=== PATIENT | male | born 1935 | race Caucasian/White ===

== ENCOUNTER 2017-02-16 12:20 | Inpatient (IN) | payer MEDICARE, OTHER ==
[2017-02-16] MEDS ORDERED: Diabetic Tussin 200 MG/10 ML UDCUP PO PRN (12:22)
[2017-02-16] MEDS ORDERED: Senokot 8.6 MG TAB PO PRN (12:22)
[2017-02-16] MEDS ORDERED: Artificial Tears 18 DROP/0.9 ML EA EYE PRN (12:22)
[2017-02-16] MEDS ORDERED: Milk Of Magnesia 30 ML UDCUP PO PRN (12:22)
[2017-02-16] MEDS ORDERED: Ondansetron HCl/PF 4 MG/2 ML Vial IVP PRN (12:22)
[2017-02-16] MEDS ORDERED: Loperamide HCl 2 MG CAP PO PRN (12:22)
[2017-02-16] MEDS ORDERED: hydrALAZINE 20 MG/ML VIAL SLOW IVP PRN (12:22)
[2017-02-16] MEDS ORDERED: Labetalol HCl 100 MG/20 ML VIAL SLOW IVP PRN (12:22)
[2017-02-16] MEDS ORDERED: Acetaminophen 325 MG TAB PO PRN (12:22)
[2017-02-16] MEDS ORDERED: Ondansetron ODT 4 MG TAB PO PRN (12:22)
[2017-02-16] MEDS ORDERED: Sodium Chloride 0.65% Nasal 44 ML BOT EA NARE PRN (12:22)
[2017-02-16] MEDS ORDERED: Mag-Al 1200 mg/1200 mg/30 ML UDCUP PO PRN (12:22)
[2017-02-16] MEDS ORDERED: Eucerin (Mineral Oil/Petrolatum,White) 30 gm Jar TOP PRN (12:22)
[2017-02-16] MEDS ORDERED: HYDROcodone/Acetaminophen 5/325 mg Tablet PO PRN (12:22)
[2017-02-16] MEDS ORDERED: Morphine 4 MG/ML Carpuject SLOW IVP PRN (12:25)
[2017-02-16] MEDS ORDERED: Sodium Chloride 0.9% 1,000 ML IV SCH (12:30)
[2017-02-16 13:07] VITALS: BMI 28.4
[2017-02-16 13:27] LABS: #Eosinphils 0.1 thou/uL (0.0-0.7); #Lymphocytes 1.7 thou/uL (1.20-3.40); #Monocytes 1.1 thou/uL (0.11-0.59); %Basophils 0.2 % (0.0-1.0); %Lymphocytes 18.9 % (21.0-51.0); %Monocytes 11.8 % (0.0-10.0); Hematocrit 46.2 % (42.0-52.0); Mean Platelet Volume 9.4 fL (7.4-10.4); Red Blood Cell (RBC) Count 4.36 mill/uL (4.70-6.10); White Blood Cell (WBC) Count 8.9 thou/uL (4.8-10.8)
--- NOTE | 2017-02-16 13:35 | CON ---
DATE OF CONSULTATION: 02/16/2017 REASON FOR CONSULTATION: Pancreatitis. HISTORY OF PRESENT ILLNESS: Mr. Donahue is a 81-year-old gentleman who came to the office yesterday f or multiple complaints. He reported that he had been having some epigastric pain and chest pain wit h esophageal spasm for about 3 weeks now. He had been out of state in [place] where he went to an Urgent Care Clinic and was told he had alcoholic hepatitis and alcoholic gastritis. He was placed on a PPI and told to avoid alcohol. At that time his ALT and AST were 168 and 38 with an alkaline p hosphatase of 163, albumin of 4.5 and a bilirubin of 0.6. Apparently he had some liver enzyme eleva tion higher than that prior to that visit, but we do not have those records. He describes the epiga stric pain as vague. He states his chest pain is spasm-like, it recurred when he was eating. He th inks it was occurring because he had been stopped from taking his PPIs and he had recently seen a ne phrologist as well in the past several months for some renal insufficiency, it was felt to be relate d to NSAID use and PPIs. He was on NSAIDs secondary to psoriatic arthritis that has been treated by Dr. Castro more recently. He has only been on prednisone 5 mg a day for that. He has been takin g ranitidine for his reflux. He reported having some throat pain and spasm, difficulty swallowing a t times, but was not vomiting or having any symptoms of bolus obstruction. Presently he has come in today for upper endoscopy to rule out ulcer disease or strictures which was essentially normal exce pt for a 5 cm sliding type hiatal hernia. We were able to retrieve the labs done late yesterday aft [place] before he left and it was found that he had an AST and ALT of 594 and 678 with an alkaline ph osphatase of 412 and a bilirubin of 7.5, amylase 2089, and a lipase of 5404, BUN and creatinine were 24 and 1.7. Electrolytes were normal. TSH was normal. Folic acid, vitamin B12 are normal. White count was 12.6, hemoglobin 16, MCV 106, platelet count 180. PAST MEDICAL AND SURGICAL HISTORY: 1. Psoriatic arthritis. 2. Regular alcohol use. 3. Asthma/COPD. 4. History of skin cancer. 5. Hypertension. 6. Prior history of a cholecystectomy. 7. Eye surgery. 8. He reports a history of ulcerative colitis, although it never been documented here. 9. Previous colonoscopy in 2016 was normal except for a diminutive polyp in the sigmoid colon. 10. Ankle surgery. 11. Orthopedic surgery, rotator cuff surgery. 12. Abdominal surgery. 13. Appendectomy. 14. Tonsillectomy. FAMILY HISTORY: CVA, coronary artery disease, uterine cancer in mother. SOCIAL HISTORY: , 6 children. He chews tobacco, drinks daily, vague on amounts, 3-5 drinks per day. REVIEW OF SYSTEMS: Negative for fever, chills, icterus, pruritus, weight loss. PHYSICAL EXAMINATION: VITAL SIGNS: The patient is afebrile, blood pressure 150/83, respirations 18. GENERAL: He is a well-nourished, well-developed. He has no overt acute distress. LUNGS: Clear. HEART: Regular rate and rhythm without clicks or murmurs. ABDOMEN: Soft, nontender with no rebound or guarding. EXTREMITIES: No clubbing, cyanosis or edema. LABORATORY STUDIES: From yesterday; sodium 139, potassium 3.9, bicarb of 103, BUN 24, creatinine 1. 71, glucose 122, calcium 10.8, bilirubin 3.1, AST and ALT 594 and 678, alkaline phosphatase 412, lip ase 5404. Amylase 2098, TSH 2.6. White count 12.6, hemoglobin 16, MCV 108, platelet count 180. ASSESSMENT: This is a gentleman who was seen at an outside hospital out of state about 3 weeks ago with abdominal pain, abnormal liver enzymes. It is unclear what those numbers were; however, he rep orts he was told he had alcoholic hepatitis and possible gastritis or ulcer disease. He did get a f ollowup note from them stating his liver enzymes have improved, but not gone back to normal on 01/30 with an ALT and AST of 168 and 38. Bilirubin was 0.6. Now he has returned to see us. He has had an EGD today for dysphagia and abdominal pain that were essentially normal; however, his labs c leonel [facility] and it shows his amylase and lipase a re elevated, elevated liver enzymes. In the setting of previous cholecystectomy and history of now fluctuating LFTs, this is probably more likely biliary pancreatitis than alcoholic pancreatitis. Of note, his ALT and AST at the outside hospital 2 weeks ago was 168 and 38, ratio not expected with a lcohol. He shows no signs of cholangitis or sepsis, actually has very minimal pain. Multiple other medical problems to include asthma/chronic obstructive pulmonary disease, psoriatic arthritis/chronic steroid use. PLAN: Admit to the hospital, IV fluids. Abdominal imaging with CT or ultrasound, repeat labs today . The patient may ultimately need an ERCP during this admission.
[2017-02-16 13:47] LABS: Phosphorus 3.4 mg/dL (2.3-4.7)
[2017-02-16 13:50] LABS: ALT (SGPT) 429 U/L (8-55); AST (SGOT) 210 U/L (5-34); Alkaline Phosphatase 311 U/L (40-150); Anion Gap 16 mmol/L (10-20); BUN (Urea Nitrogen) 27 mg/dL (8.4-25.7); Bilirubin, Total 2.6 mg/dL (0.2-1.2); Calc. Creatinine Clearance 45 mL/min (70-130); Calcium 9.6 mg/dL (7.8-10.44); Carbon Dioxide 21 mmol/L (23-31); Chloride 105 mmol/L (98-107); Estimated GFR-MDRD 40; Globulin 3.7 g/dL (2.4-3.5); Lipase 978 U/L (8-78); Magnesium 2.2 mg/dL (1.6-2.6); Protein, Total 7.3 g/dL (5.8-8.1)
[2017-02-16] MEDS ORDERED: Multivit, Adult Inj 10 ML VIAL IV SCH (14:15)
--- NOTE | 2017-02-16 14:35 | HP ---
PRIMARY CARE PHYSICIAN: Héctor Christensen M.D. REASON FOR ADMISSION: Direct admission from Dr. Palencia' office for acute pancreatitis. HISTORY OF PRESENT ILLNESS: A 81-year-old male who visited Dr. Palencia' office yesterday with multiple complaints. Mainly, he was worried about his epigastric abdominal pain and he was having chest pain which was on and off for about 3 weeks. The patient was thinking that it was related with his esophageal spasm and that is why he was ignoring to go to the emergency room. His pain was gradually getting worse and that is why yesterday he made appointment with Dr. Palencia. Patient also recently went [place] where he went to Urgent Care Clinic and he was told that he had alcoholic hepatitis and alcoholic gastritis. He was placed on proton pump inhibitor and advised to avoid alcohol. For the last 3 weeks, patient was not drinking any alcohol and still he was having abdominal pain. He denies any fever, but he was feeling nausea. He denies any diarrhea. He denies any hematemesis. He denies any pain, melena or hematochezia. Patient's epigastric pain was getting worse with food. 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 His renal insufficiency was attributed to be due to NSAID, which he was using for his psoriatic arthritis. His psoriatic arthritis is managed by Dr. Castro. Last night after returning from Dr. Palencia' office, he was doing okay, but during nighttime, he had episode of fall and he got bruise on his left foot as well as left and right knee. He denies any chest pain, palpitation or shortness of breath. The patient had routine lab test done yesterday and patient was found that his AST 18 and ALT was significantly elevated as well as alkaline phosphatase was elevated and bilirubin was also high. His lipase and amylase was also very high. As per Dr. Palencia, his AST was 594 and ALT 678 and his alkaline phosphatase was 412 and bilirubin was 7.5. His amylase was 2089 and lipase 5404. His creatinine was 1.7. Electrolytes were normal. TSH was normal. Folic acid and B12 was normal and WBC count was 12.6 and platelet count was 180. This morning, he was told to come back to the clinic. Patient had EGD today for dysphagia, which was normal. The patient also reports that he had cholecystectomy done in past. At this point, we are admitting this patient for acute pancreatitis. PAST MEDICAL HISTORY: Psoriatic arthritis, alcohol abuse, asthma/COPD, history of skin cancer, hypertension, and history of ulcerative colitis. PAST SURGICAL HISTORY: Cholecystectomy, excision of skin cancer, colonoscopy showed polyp, eye surgery, ankle surgery, rotator cuff repair, abdominal surgery , appendicectomy, and tonsillectomy. FAMILY HISTORY: Positive for heart disease, stroke, and cancer among several family members, especially mother. ALLERGY: Penicillin CURRENT HOME MEDICATION: Synthroid 50 mc po daily, losartan/HCTZ 100/12.5 mg po daily, crestor 10 mg po daily. Flomax 0.4 mg po daily, singulair 10 mg po daily SOCIAL HISTORY: Patient is . He has 6 children. He chews tobacco. He drinks alcohol, three beers daily basis, he did not drink any alcohol for last 2-3 weeks. He denies any other illicit drug abuse. REVIEW OF SYSTEMS: The following complete review of systems was negative, unless otherwise mentioned in the HPI or below: Constitutional: Weight loss or gain, ability to conduct usual activities. Skin: Rash, itching. Eyes: Double vision, pain. ENT/Mouth: Nose bleeding, neck stiffness, pain, tenderness. Cardiovascular: Palpitations, dyspnea on exertion, orthopnea. Respiratory: Shortness of breath, wheezing, cough, hemoptysis, fever or night sweats. Gastrointestinal: Poor appetite, abdominal pain, heartburn, nausea, vomiting, constipation, or diarrhea. Genitourinary: Urgency, frequency, dysuria, nocturia. Musculoskeletal: Pain, swelling. Neurologic/Psychiatric: Anxiety, depression. Allergy/Immunologic: Skin rash, bleeding tendency. Please see my HPI for pertinent positive and negative. All other review of systems reviewed and negative except as mentioned in the HPI. PAST PSYCHIATRIC HISTORY: Reviewed and negative. PHYSICAL EXAMINATION: VITAL SIGNS: Currently, temperature 97.7, pulse 73, respiratory rate 16, saturation 94%, blood pressure 132/79. Weight 192 pounds. GENERAL: Patient is currently alert, awake, no obvious acute distress. HEAD: Normocephalic, atraumatic. EYES: Pupils round, reactive to light. Extraocular muscles intact. ENT: Oropharynx within normal limits. Moist mucous membranes, no oral lesion, no pharyngeal erythema, no exudate. NECK: Supple. Range of motion is normal. No meningeal signs of irritation. LUNGS: Clear to auscultation without any rhonchi or rales. CARDIAC: S1 and S2 regular without any murmur. ABDOMEN: Obesity present. Patient has epigastric tenderness. No peritoneal sign, no guarding, no rigidity, no rebound. BACK: Examination unremarkable, no CVA tenderness. EXTREMITIES: Upper extremity passive movements of all joints are normal. Lower extremities: No edema. Good peripheral pulsation. SKIN: No skin rash. The patient does have bruits above both knees as well as bruise over left foot. NEUROLOGIC: Nonfocal examination. MUSCULOSKELETAL: Passive movements of all joints are normal. PSYCHIATRIC: Normal affect. SIGNIFICANT LABORATORY DATA: 1. CBC: WBC 8.9, hemoglobin 14.7, MCV 106, and platelets 157. 2. BMP: Sodium 138, potassium 4.2, chloride 105, carbon dioxide 21, anion gap 16, BUN 27, creatinine 1.65, glucose 89, calcium 9.6, phosphorus 3.4, magnesium 2.2. 3. LFT: AST 210, ALT 429, alkaline phosphatase 311, albumin 3.6, CRP 10.81, lipase 978. ASSESSMENT AND PLAN/IMPRESSION: 1. Acute pancreatitis. This patient has a history of alcoholism, but he drinks alcohol almost 3-4 drinks everyday basis. He has not drank anything for last 2-3 weeks. Despite that, his LFT has gotten abnormal and he has elevated lipase. This patient already had previous cholecystectomy, underlying choledocholithiasis is possible. At this point, we will continue hydration with IV fluid with NS at 200 mL per hour. We will control his pain with morphine p.r.n. basis. We will keep him n.p.o. We will repeat CMP tomorrow. Once we hydrated him well and his renal function improves, then we will consider doing CT abdomen if needed. We will consult music professionals as well. Meanwhile, we will continue with Pepcid 20 mg IV b.i.d. and symptomatic treatment for nausea. Incentive spirometry was advised. 2. Abnormal liver function tests. We will check hepatitis profile to rule out any hepatitis C, most likely his abnormal LFTs could be related with choledocholithiasis versus alcoholic liver disease. Other etiology needs to be excluded. 3. Chronic kidney disease stage 3. We will monitor renal function and we will continue with IV fluid and will repeat CMP tomorrow. We will also check urinalysis. 4. Macrocytosis, likely related with his alcohol use. We will also consider giving him multivitamin daily. 5. Chronic obstructive pulmonary disease/asthma. We will continue DuoNeb q.6 hourly p.r.n., Dulera 2 puffs inhalation b.i.d. 6. Hypothyroidism. We will continue Synthroid 50 mcg p.o. daily. 7. Dyslipidemia. We will check lipid profile tomorrow and continue Crestor 10 mg p.o. at bedtime. 8. Benign enlargement of prostate. We will continue Flomax 0.4 mg p.o. daily. 9. Hypertension. Currently, blood pressure is stable, but if blood pressure permits, then we will consider adding losartan 50 mg p.o. daily. We will hold on losartan 100 mg p.o. daily. We will hold on hydrochlorothiazide. 10. Deep venous thrombosis prophylaxis. Lovenox 40 mg subcutaneously daily. 11. Gastrointestinal prophylaxis. Pepcid 20 mg IV b.i.d. 12. Code status: The patient is FULL CODE. Patient does not have any surrogate decision maker. Disposition plan based on clinical course. Plan of care extensively discussed with the patient in detail. This patient may need ERCP based on clinical course and above-mentioned investigation result. MTDD
[2017-02-16] MEDS ORDERED: ADMIXTURE FEE IV SCH ×3 (15:00)
[2017-02-16] MEDS ORDERED: [UNRECOGNIZED DRUG - OTHER] IV SCH ×3 (15:00)
[2017-02-16] MEDS ORDERED: MULTIVITAMINS IV SCH ×3 (15:00)
[2017-02-16 15:03] LABS: Bilirubin Moderate (Negative); Blood, Urine Negative (Negative); Glucose, Urine (Dipstick) Negative (Negative); Ketone, Urine Trace mg/dL (Negative); Protein, Urine (Dipstick) 30 mg/dL (Neg-Trace)
[2017-02-16 15:05] LABS: Bacteria/HPF None Seen HPF (None Seen); Hyaline Casts/LPF 0-3 HYALINE CAST LPF (0-3 Hyaline); RBC/HPF 0-3 HPF (0-3)
[2017-02-16 15:10] LABS: Nitrite Negative (Negative)
[2017-02-16 15:15] LABS: Renal Epithelial 0-3 HPF (0-3); Transitional Epithelial 0-3 HPF (0-3)
[2017-02-16] MEDS: Dextrose 5 % And 0.9 % NaCl 1,000 ML IV SCH ×2 (15:20→21:11)
--- NOTE | 2017-02-16 17:04 | ULT ---
RIGHT UPPER QUADRANT ULTRASOUND: Date: 02/16/17 CLINICAL HISTORY: Pancreatitis. FINDINGS: Gallbladder is surgically absent. The liver reveals no evidence of focal hepatic lesion. Common duct is normal at 3.0 mm in diameter. Matthews's sign reported as negative by the return checker. No ascites. IMPRESSION: 1. Status post cholecystectomy. 2. No acute abnormalities in the right upper quadrant are evident, sonographically. POS: [facility]
[2017-02-16] MEDS: Mometasone/Formoterol 120 PUFF INHALER INH SCH (19:15)
[2017-02-16] MEDS: Famotidine/PF 20 mg/2ml Vial SLOW IVP SCH (21:11)
[2017-02-16] MEDS: Rosuvastatin 10 MG TAB PO SCH (21:11)
[2017-02-16] MEDS: Zolpidem Tartrate 5 MG TAB PO PRN (21:12)
[2017-02-16] MEDS: Loratadine 10 MG TAB PO PRN (21:12)
[2017-02-17] MEDS: Dextrose 5 % And 0.9 % NaCl 1,000 ML IV SCH ×5 (04:00→21:35)
[2017-02-17 04:42] LABS: #Eosinphils 0.1 thou/uL (0.0-0.7); #Lymphocytes 1.2 thou/uL (1.20-3.40); #Neutrophils 4.6 thou/uL (1.40-6.50); %Basophils 0.5 % (0.0-1.0); %Eosinophils 1.8 % (0.0-10.0); %Lymphocytes 16.8 % (21.0-51.0); %Monocytes 14.6 % (0.0-10.0); Hematocrit 39.7 % (42.0-52.0); Red Blood Cell (RBC) Count 3.71 mill/uL (4.70-6.10); White Blood Cell (WBC) Count 6.9 thou/uL (4.8-10.8)
[2017-02-17 04:58] LABS: ALT (SGPT) 295 U/L (8-55); AST (SGOT) 111 U/L (5-34); Alkaline Phosphatase 241 U/L (40-150); Anion Gap 11 mmol/L (10-20); BUN (Urea Nitrogen) 22 mg/dL (8.4-25.7); Bilirubin, Total 1.5 mg/dL (0.2-1.2); Calc. Creatinine Clearance 50 mL/min (70-130); Calcium 8.7 mg/dL (7.8-10.44); Carbon Dioxide 21 mmol/L (23-31); Chloride 111 mmol/L (98-107); Cholesterol 120 mg/dl (< 200 Desired); Estimated GFR-MDRD 46; Globulin 3.3 g/dL (2.4-3.5); LDL Cholesterol, Calculated 65 mg/dL; Lipase 531 U/L (8-78); Protein, Total 6.4 g/dL (5.8-8.1)
[2017-02-17] MEDS: Mometasone/Formoterol 120 PUFF INHALER INH SCH ×2 (07:56→19:07)
[2017-02-17] MEDS: Enoxaparin Sodium 40 MG/0.4 ML SYRINGE SC SCH (08:09)
[2017-02-17] MEDS: Famotidine/PF 20 mg/2ml Vial SLOW IVP SCH ×2 (08:09→21:28)
[2017-02-17] MEDS: Levothyroxine Sodium 50 MCG TAB PO SCH (08:09)
[2017-02-17] MEDS: Tamsulosin HCl 0.4 MG CAP PO SCH (08:09)
[2017-02-17] MEDS: Calcium Carbonate 600 MG TAB PO SCH (08:09)
[2017-02-17] MEDS: Montelukast Sodium 10 mg Tablet PO SCH (08:09)
[2017-02-17] MEDS: Multivit, Therapeutic 1 TAB PO SCH (08:09)
[2017-02-17] MEDS ORDERED: Non-Formulary Item 1 EACH (Multivitamin [Multivitamins] 1 CAP) PO SCH ×2 (09:00)
--- NOTE | 2017-02-17 12:43 | PDOC.PN ---
- Subjective Encounter Start Date: 02/17/17 Encounter Start Time: 09:15 -: old records requested/rev pt has mild abdominal pain, no fever Patient seen and examined. No new complaints. No overnight events - Objective Resuscitation Status: Resuscitation Status FULL:Full Resuscitation MAR Reviewed: Yes Vital Signs & Weight: Vital Signs (12 hours) Temp Pulse Resp BP Pulse Ox 02/17/17 12:00 97.9 F 55 L 18 158/85 H 94 L 02/17/17 08:02 95 02/17/17 08:00 97.1 F L 61 20 95 02/17/17 07:56 61 20 95 02/17/17 07:37 97.1 F L 60 20 151/88 H 94 L Weight Weight 192 lb 8 oz Result Diagrams: 02/17/17 03:24 02/17/17 03:24 Radiology Reviewed by me: Yes (abdominal mri) Phys Exam - Physical Examination Constitutional: NAD HEENT: PERRLA, moist MMs, sclera anicteric Neck: no JVD, supple Respiratory: no wheezing, no rales, no rhonchi Cardiovascular: RRR, no significant murmur, no rub Gastrointestinal: soft, no distention, positive bowel sounds epigastric tenderness Musculoskeletal: no edema, pulses present Neurological: non-focal, normal sensation, moves all 4 limbs Psychiatric: normal affect, A&O x 3 Skin: no rash, normal turgor Dx/Plan (1) Abnormal LFTs Code(s): R79.89 - OTHER SPECIFIED ABNORMAL FINDINGS OF BLOOD CHEMISTRY Status : Acute (2) Acute pancreatitis Code(s): K85.90 - ACUTE PANCREATITIS WITHOUT NECROSIS OR INFECTION, UNSP Status: Acute (3) UTI (urinary tract infection) Status: Acute (4) Alcohol abuse Code(s): F10.10 - ALCOHOL ABUSE, UNCOMPLICATED Status: Chronic (5) BPH (benign prostatic hyperplasia) Code(s): N40.0 - BENIGN PROSTATIC HYPERPLASIA WITHOUT LOWER URINRY TRACT SYMP Status: Chronic (6) COPD (chronic obstructive pulmonary disease) Status: Chronic (7) Dyslipidemia Code(s): E78.5 - HYPERLIPIDEMIA, UNSPECIFIED Status: Chronic (8) GERD (gastroesophageal reflux disease) Code(s): K21.9 - GASTRO-ESOPHAGEAL REFLUX DISEASE WITHOUT ESOPHAGITIS Status: Chronic (9) Hypertension Code(s): I10 - ESSENTIAL (PRIMARY) HYPERTENSION Status: Chronic (10) Hypothyroidism Code(s): E03.9 - HYPOTHYROIDISM, UNSPECIFIED Status: Chronic (11) Macrocytosis Code(s): D75.89 - OTHER SPECIFIED DISEASES OF BLOOD AND BLOOD-FORMING ORGANS Status: Chronic - Plan cont current plan of care * will get MRI abdomen * continue NPO * pt is improving * will advance diet tomorrow * medication reviewed as below * symptomatic treatment * GI following. * continue IVF * pain controlled Review of Systems - Review of Systems Constitutional: negative: Fever, Chills, Sweats, Weakness, Malaise, Other ENT: negative: Ear Pain, Ear Discharge, Nose Pain, Nose Discharge, Nose Congestion, Mouth Pain, Mouth Swelling, Throat Pain, Throat Swelling, Other Respiratory: negative: Cough, Dry, Shortness of Breath, Hemoptysis, SOB with Excertion, Pleuritic Pain, Sputum, Wheezing Cardiovascular: negative: Chest Pain, Palpitations, Orthopnea, Paroxysmal Noc. Dyspnea, Edema, Light Headedness, Other Gastrointestinal: Abdominal Pain. negative: Nausea, Vomiting, Diarrhea, Constipation, Melena, Hematochezia, Other Genitourinary: negative: Dysuria, Frequency, Incontinence, Hematuria, Retention , Other Musculoskeletal: negative: Neck Pain, Shoulder Pain, Arm Pain, Back Pain, Hand Pain, Leg Pain, Foot Pain, Other Skin: negative: Rash, Lesions, Michelet, Bruising, Other - Medications/Allergies Allergies/Adverse Reactions: Allergies Allergy/AdvReac Type Severity Reaction Status Date / Time Penicillins Allergy Hives Verified 05/30/13 13:45 BLACK PEPPER Allergy Uncoded 05/30/13 21:34 GARLIC Allergy Uncoded 05/30/13 21:34 Medications: Current Medications Acetaminophen (Tylenol) 650 mg PO Q4H PRN PRN Reason: Headache/Fever or Pain Hydrocodone Bitart/Acetaminophen ([place] 5/325) 1 tab PO Q4H PRN PRN Reason: Moderate Pain (4-6) Al Hydroxide/Mg Hydroxide (Maalox) 30 ml PO Q6H PRN PRN Reason: Heartburn or Indigestion Albuterol/Ipratropium (Duoneb) 3 ml NEB [id number] PRN PRN Reason: SOB &/or Wheezing Artificial Tears (Tears Naturale) 0 drop EA EYE PRN PRN PRN Reason: Dry Eyes Calcium Carbonate (Caltrate) 600 mg PO DAILY COUNTS INCLUDE 234 BEDS AT THE [facility] Last Admin: 02/17/17 08:09 Dose: 600 mg Enoxaparin Sodium (Lovenox) 40 mg SC 0900 COUNTS INCLUDE 234 BEDS AT THE [facility] Last Admin: 02/17/17 08:09 Dose: 40 mg Famotidine (Pepcid) 20 mg SLOW IVP Q12HR COUNTS INCLUDE 234 BEDS AT THE [facility] Last Admin: 02/17/17 08:09 Dose: 20 mg Guaifenesin (Robitussin Sf) 200 mg PO Q4H PRN PRN Reason: Cough Hydralazine HCl (Apresoline) 10 mg SLOW IVP Q4H PRN PRN Reason: Systolic BP > 180 Dextrose/Sodium Chloride (D5 0.9% Ns) 1,000 mls @ 150 mls/hr IV .Q6H40M COUNTS INCLUDE 234 BEDS AT THE [facility] Last Admin: 02/17/17 04:00 Dose: 1,000 mls Labetalol HCl (Normodyne) 20 mg SLOW IVP Q4H PRN PRN Reason: Systolic BP > 180 Levothyroxine Sodium (Synthroid) 50 mcg PO DAILY COUNTS INCLUDE 234 BEDS AT THE [facility] Last Admin: 02/17/17 08:09 Dose: 50 mcg Loperamide HCl (Imodium) 2 mg PO PRN PRN PRN Reason: Diarrhea/Loose Stools Loratadine (Claritin) 10 mg PO DAILYPRN PRN PRN Reason: Sinus Symptoms Last Admin: 02/16/17 21:12 Dose: 10 mg Magnesium Hydroxide (Milk Of Magnesium) 30 ml PO DAILYPRN PRN PRN Reason: Constipation Mineral Oil/White Petrolatum (Eucerin Cream) 0 gm TOP BIDPRN PRN PRN Reason: Dry Skin Mometasone Furoate/Formoterol Fumar (Dulera 200 Mcg/5 Mcg Inhaler) 2 puff INH BID-RT COUNTS INCLUDE 234 BEDS AT THE [facility] Last Admin: 02/17/17 07:56 Dose: 2 puff Montelukast Sodium (Singulair) 10 mg PO DAILY COUNTS INCLUDE 234 BEDS AT THE [facility] Last Admin: 02/17/17 08:09 Dose: 10 mg Morphine Sulfate (Morphine) 4 mg SLOW IVP Q4H PRN PRN Reason: Pain Multivitamins (Theragran) 1 tab PO DAILY COUNTS INCLUDE 234 BEDS AT THE [facility] Last Admin: 02/17/17 08:09 Dose: 1 tab Ondansetron HCl (Zofran Odt) 4 mg PO Q6H PRN PRN Reason: Nausea/Vomiting Ondansetron HCl (Zofran) 4 mg IVP Q6H PRN PRN Reason: Nausea/Vomiting Rosuvastatin Calcium (Crestor) 10 mg PO HS COUNTS INCLUDE 234 BEDS AT THE [facility] Last Admin: 02/16/17 21:11 Dose: 10 mg Senna (Senokot) 2 tab PO HSPRN PRN PRN Reason: Constipation Sodium Chloride ([place] Nasal [place] 0.65%) 0 ml EA NARE QIDPRN PRN PRN Reason: Nasal Congestion Sodium Chloride (Flush - Normal Saline) 10 ml IVF Q12HR COUNTS INCLUDE 234 BEDS AT THE [facility] Last Admin: 02/17/17 08:10 Dose: 10 ml Sodium Chloride (Flush - Normal Saline) 10 ml IVF PRN PRN PRN Reason: Saline Flush Tamsulosin HCl (Flomax) 0.4 mg PO DAILY COUNTS INCLUDE 234 BEDS AT THE [facility] Last Admin: 02/17/17 08:09 Dose: 0.4 mg Zolpidem Tartrate (Ambien) 5 mg PO HSPRN PRN PRN Reason: Insomnia Last Admin: 02/16/17 21:12 Dose: 5 mg
--- NOTE | 2017-02-17 15:08 | MRI ---
MRI OF THE ABDOMEN WITHOUT CONTRAST: Date: 02/17/17 INDICATION: History of pancreatitis and elevated LFTs. FINDINGS: The liver demonstrates a normal signal intensity. No signal dropout is seen on the in-and-out of phas e images. No overt focal lesion is evident on the T2-weighted images involving the liver. There is a large hiatal hernia. There is a large diverticulum seen off of the third stage of the duodenum measur ing 5.5 cm. The pancreatic parenchyma appears within normal limits without appreciable surrounding fl uid. The main pancreatic duct is of normal caliber. The common bile duct measures 4.8 mm, which is no rmal. There is a 5.0 mm T2 hypointense lesion seen at the level of the distal common bile duct on naveed ge 35 of series 5 and image 20 of series 4 which may reflect a small stone. Gallbladder is not visual ized and may be surgically absent. There are multiple bilateral peripelvic cysts. No hydronephrosis is evident. Adrenal glands and splee n appear within normal limits. IMPRESSION: 1. Findings suspicious for choledocholithiasis with a suspected 5.0 mm stone in the distal CBD. 2. Nonvisualization of the gallbladder. This may be surgically absent. Common bile duct is not appre ciably dilated measuring 4.8 mm. 3. Multiple peripelvic cysts. 4. Large hiatal hernia. POS: [facility]
[2017-02-17] MEDS ORDERED: Indomethacin 50 MG SUPP PR SCH ×2 (15:15→17:00)
[2017-02-17] MEDS: Loratadine 10 MG TAB PO PRN (21:30)
[2017-02-17] MEDS: Rosuvastatin 10 MG TAB PO SCH (21:30)
[2017-02-17] MEDS: Zolpidem Tartrate 5 MG TAB PO PRN (21:30)
--- NOTE | 2017-02-17 23:09 | PRG ---
DATE OF SERVICE: 02/17/2017 SUBJECTIVE: Mr. Donahue is feeling better, does not needs any narcotic pain medicine. OBJECTIVE: VITAL SIGNS: Temperature 97, pulse 65, blood pressure 158/85. LUNGS: Clear. HEART: Regular rate and rhythm without clicks or murmurs. ABDOMEN: Soft, nontender. LABORATORY STUDIES: White count 6.9, hemoglobin 13, platelet count 129. Chemistries: BUN and crea tinine are 22 and 1.47. Bilirubin is down to 1.5, AST and ALT are 111 and 295, albumin is 3.1, lipa se is down to 531. MRCP shows possible periampullary diverticula what appears to be choledocholithi asis per Radiology. ASSESSMENT: 1. Pancreatitis, likely resolving biliary pancreatitis. Patient has a history of alcohol use, 3 to 4 beers daily, got sick and he has never had pancreatitis before. 2. Esophagogastroduodenoscopy was normal yesterday before these labs came back. 3. The patient reports that when he had his gallbladder removed in , he had a stent put in for a while then it was removed. The stent was to flush some stones out. He does not recall the term of bile leak. The significance of this is unclear. PLAN: ERCP tomorrow as long as his lipase continues to drop.
[2017-02-18] MEDS: Dextrose 5 % And 0.9 % NaCl 1,000 ML IV SCH ×2 (04:22→18:09)
[2017-02-18 04:36] LABS: ALT (SGPT) 197 U/L (8-55); AST (SGOT) 52 U/L (5-34); Alkaline Phosphatase 199 U/L (40-150); Anion Gap 10 mmol/L (10-20); BUN (Urea Nitrogen) 14 mg/dL (8.4-25.7); Bilirubin, Total 0.9 mg/dL (0.2-1.2); Calc. Creatinine Clearance 68 mL/min (70-130); Calcium 8.5 mg/dL (7.8-10.44); Carbon Dioxide 18 mmol/L (23-31); Chloride 113 mmol/L (98-107); Estimated GFR-MDRD 66; Globulin 3.3 g/dL (2.4-3.5); Lipase 193 U/L (8-78); Protein, Total 6.2 g/dL (5.8-8.1)
[2017-02-18] MEDS ORDERED: Indomethacin 50 MG SUPP PR SCH (06:00)
[2017-02-18] MEDS ORDERED: Iothalamate Meglumine 60% 50 ML VIAL FS ONE (07:39)
[2017-02-18] MEDS: Enoxaparin Sodium 40 MG/0.4 ML SYRINGE SC SCH (08:01)
[2017-02-18] MEDS: Multivit, Therapeutic 1 TAB PO SCH (08:01)
[2017-02-18] MEDS: Montelukast Sodium 10 mg Tablet PO SCH (08:01)
[2017-02-18] MEDS: Calcium Carbonate 600 MG TAB PO SCH (08:01)
[2017-02-18] MEDS: Levothyroxine Sodium 50 MCG TAB PO SCH (08:01)
[2017-02-18] MEDS: Famotidine/PF 20 mg/2ml Vial SLOW IVP SCH ×2 (08:01→20:51)
[2017-02-18] MEDS: Tamsulosin HCl 0.4 MG CAP PO SCH (08:01)
[2017-02-18] MEDS: Mometasone/Formoterol 120 PUFF INHALER INH SCH ×2 (08:04→18:37)
[2017-02-18] MEDS ORDERED: Levofloxacin 500 mg/D5W 100 ml Premix Bag ONE (08:38)
[2017-02-18] MEDS ORDERED: Indomethacin 50 MG SUPP ONE ×2 (08:56→08:58)
[2017-02-18] MEDS ORDERED: Fentanyl 100 MCG/2 ML VIAL ONE (08:58)
[2017-02-18] MEDS ORDERED: Lidocaine 2% MPF 10 ML AMP (For Epidural Use) ONE (09:09)
[2017-02-18] MEDS ORDERED: Glycopyrrolate 0.2 MG/ML 5 ML SYRINGE ONE (09:09)
[2017-02-18] MEDS ORDERED: Dexamethasone 20 MG/5 ML VIAL ONE (09:09)
[2017-02-18] MEDS ORDERED: Propofol 200 MG/20 ML VIAL ONE (09:09)
[2017-02-18] MEDS ORDERED: ePHEDrine/0.9% NaCl/PF SYRINGE 50 mg/10 ml ONE (09:09)
[2017-02-18] MEDS ORDERED: Promethazine HCl 25 MG/ML VIAL SLOW IVP PRN (09:20)
[2017-02-18] MEDS ORDERED: Promethazine HCl 25 MG/ML VIAL IM PRN (09:20)
[2017-02-18] MEDS ORDERED: Ondansetron HCl/PF 4 MG/2 ML Vial IVP PRN (09:20)
--- NOTE | 2017-02-18 11:11 | PDOC.PN ---
- Subjective Encounter Start Date: 02/18/17 Encounter Start Time: 08:45 Subjective: still has epigastric pain, no nausea or sob - Objective Resuscitation Status: Resuscitation Status FULL:Full Resuscitation MAR Reviewed: Yes Vital Signs & Weight: Vital Signs (12 hours) Temp Pulse Resp BP Pulse Ox 02/18/17 08:11 97.8 F 55 L 16 144/76 H 95 02/18/17 08:04 56 L 20 98 02/18/17 02:00 56 L 18 132/77 Weight Weight 192 lb 8 oz I&O: 02/17/17 02/18/17 02/19/17 06:59 06:59 05:59 Intake Total 5394 Output Total 1200 Balance 4194 Result Diagrams: 02/17/17 03:24 02/18/17 04:01 Phys Exam - Physical Examination HEENT: PERRLA, moist MMs Neck: no JVD, supple Respiratory: no wheezing, no rales Cardiovascular: RRR, no significant murmur Gastrointestinal: soft, no distention, positive bowel sounds epigastric tenderness +, no rigidity or guarding Musculoskeletal: no edema, pulses present Neurological: non-focal, moves all 4 limbs Psychiatric: A&O x 3 Dx/Plan (1) Choledocholithiasis Code(s): K80.50 - CALCULUS OF BILE DUCT W/O CHOLANGITIS OR CHOLECYST W/O OBST Status: Acute (2) Acute pancreatitis Code(s): K85.90 - ACUTE PANCREATITIS WITHOUT NECROSIS OR INFECTION, UNSP Status: Acute Qualifiers: Pancreatitis type: biliary (3) Alcohol abuse Code(s): F10.10 - ALCOHOL ABUSE, UNCOMPLICATED Status: Chronic (4) BPH (benign prostatic hyperplasia) Code(s): N40.0 - BENIGN PROSTATIC HYPERPLASIA WITHOUT LOWER URINRY TRACT SYMP Status: Chronic Qualifiers: Lower urinary tract symptom presence: unspecified whether lower urinary tract symptoms present Qualified Code(s): N40.0 - Benign prostatic hyperplasia without lower urinary tract symptoms (5) COPD (chronic obstructive pulmonary disease) Status: Chronic Qualifiers: COPD type: chronic bronchitis (6) Dyslipidemia Code(s): E78.5 - HYPERLIPIDEMIA, UNSPECIFIED Status: Chronic (7) GERD (gastroesophageal reflux disease) Code(s): K21.9 - GASTRO-ESOPHAGEAL REFLUX DISEASE WITHOUT ESOPHAGITIS Status: Chronic Qualifiers: Esophagitis presence: esophagitis presence not specified Qualified Code(s) : K21.9 - Gastro-esophageal reflux disease without esophagitis (8) Hypertension Code(s): I10 - ESSENTIAL (PRIMARY) HYPERTENSION Status: Chronic Qualifiers: Hypertension type: essential hypertension Qualified Code(s): I10 - Essential (primary) hypertension (9) Hypothyroidism Code(s): E03.9 - HYPOTHYROIDISM, UNSPECIFIED Status: Chronic Qualifiers: Hypothyroidism type: unspecified Qualified Code(s): E03.9 - Hypothyroidism , unspecified (10) Macrocytosis Code(s): D75.89 - OTHER SPECIFIED DISEASES OF BLOOD AND BLOOD-FORMING ORGANS Status: Chronic - Plan for ERCP today, has 5mm cbd stone -: lipase is trending down to 193 from 978 -: iv hydration -: morphine prn for pain -: to mobilize in hallway as tolerated * . Review of Systems - Medications/Allergies Allergies/Adverse Reactions: Allergies Allergy/AdvReac Type Severity Reaction Status Date / Time Penicillins Allergy Hives Verified 05/30/13 13:45 BLACK PEPPER Allergy Uncoded 05/30/13 21:34 GARLIC Allergy Uncoded 05/30/13 21:34 Medications: Current Medications Acetaminophen (Tylenol) 650 mg PO Q4H PRN PRN Reason: Headache/Fever or Pain Hydrocodone Bitart/Acetaminophen ([place] 5/325) 1 tab PO Q4H PRN PRN Reason: Moderate Pain (4-6) Al Hydroxide/Mg Hydroxide (Maalox) 30 ml PO Q6H PRN PRN Reason: Heartburn or Indigestion Albuterol/Ipratropium (Duoneb) 3 ml NEB [id number] PRN PRN Reason: SOB &/or Wheezing Artificial Tears (Tears Naturale) 0 drop EA EYE PRN PRN PRN Reason: Dry Eyes Calcium Carbonate (Caltrate) 600 mg PO DAILY [facility] Last Admin: 02/18/17 08:01 Dose: 600 mg Enoxaparin Sodium (Lovenox) 40 mg SC 0900 [facility] Last Admin: 02/18/17 08:01 Dose: Not Given Famotidine (Pepcid) 20 mg SLOW IVP Q12HR [facility] Last Admin: 02/18/17 08:01 Dose: 20 mg Fentanyl (Pacu-Sublimaze) 50 mcg SLOW IVP Q10MIN PRN PRN Reason: Moderate to Severe Pain (6-10) Stop: 02/18/17 12:21 Guaifenesin (Robitussin Sf) 200 mg PO Q4H PRN PRN Reason: Cough Hydralazine HCl (Apresoline) 10 mg SLOW IVP Q4H PRN PRN Reason: Systolic BP > 180 Dextrose/Sodium Chloride (D5 0.9% Ns) 1,000 mls @ 150 mls/hr IV .Q6H40M [facility] Last Admin: 02/18/17 04:22 Dose: 1,000 mls Levofloxacin 500 mg/ Device 100 mls @ 100 mls/hr IVPB ONE [facility] Stop: 02/18/17 15:16 Last Admin: 02/17/17 17:40 Dose: 100 mls Indomethacin (Indocin) 150 mg TN WILLCALL [facility] Stop: 02/18/17 23:59 Last Admin: 02/18/17 08:11 Dose: 150 mg Labetalol HCl (Normodyne) 20 mg SLOW IVP Q4H PRN PRN Reason: Systolic BP > 180 Levothyroxine Sodium (Synthroid) 50 mcg PO DAILY [facility] Last Admin: 02/18/17 08:01 Dose: 50 mcg Loperamide HCl (Imodium) 2 mg PO PRN PRN PRN Reason: Diarrhea/Loose Stools Loratadine (Claritin) 10 mg PO DAILYPRN PRN PRN Reason: Sinus Symptoms Last Admin: 02/17/17 21:30 Dose: 10 mg Magnesium Hydroxide (Milk Of Magnesium) 30 ml PO DAILYPRN PRN PRN Reason: Constipation Mineral Oil/White Petrolatum (Eucerin Cream) 0 gm TOP BIDPRN PRN PRN Reason: Dry Skin Mometasone Furoate/Formoterol Fumar (Dulera 200 Mcg/5 Mcg Inhaler) 2 puff INH BID-RT [facility] Last Admin: 02/18/17 08:04 Dose: 2 puff Montelukast Sodium (Singulair) 10 mg PO DAILY [facility] Last Admin: 02/18/17 08:01 Dose: 10 mg Morphine Sulfate (Morphine) 4 mg SLOW IVP Q4H PRN PRN Reason: Pain Multivitamins (Theragran) 1 tab PO DAILY [facility] Last Admin: 02/18/17 08:01 Dose: 1 tab Ondansetron HCl (Zofran Odt) 4 mg PO Q6H PRN PRN Reason: Nausea/Vomiting Ondansetron HCl (Zofran) 4 mg IVP Q6H PRN PRN Reason: Nausea/Vomiting Ondansetron HCl (Pacu-Zofran) 4 mg IVP ONE PRN PRN Reason: Nausea/Vomiting Stop: 02/18/17 12:21 Promethazine HCl (Pacu-Phenergan) 6.25 mg SLOW IVP ONE PRN PRN Reason: Nausea/Vomiting Stop: 02/18/17 12:21 Promethazine HCl (Pacu-Phenergan) 6.25 mg IM ONE PRN PRN Reason: Nausea/Vomiting Stop: 02/18/17 12:21 Rosuvastatin Calcium (Crestor) 10 mg PO HS [facility] Last Admin: 02/17/17 21:30 Dose: 10 mg Senna (Senokot) 2 tab PO HSPRN PRN PRN Reason: Constipation Sodium Chloride ([place] Nasal [place] 0.65%) 0 ml EA NARE QIDPRN PRN PRN Reason: Nasal Congestion Sodium Chloride (Flush - Normal Saline) 10 ml IVF Q12HR [facility] Last Admin: 02/18/17 08:02 Dose: 10 ml Sodium Chloride (Flush - Normal Saline) 10 ml IVF PRN PRN PRN Reason: Saline Flush Tamsulosin HCl (Flomax) 0.4 mg PO DAILY [facility] Last Admin: 02/18/17 08:01 Dose: 0.4 mg Zolpidem Tartrate (Ambien) 5 mg PO HSPRN PRN PRN Reason: Insomnia Last Admin: 02/17/17 21:30 Dose: 5 mg
--- NOTE | 2017-02-18 12:24 | RAD ---
LEFT FOOT THREE VIEWS: HISTORY: Left foot injury. FINDINGS: Lisfranc joint alignment is anatomic. The plantar arch is maintained. 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 Deformity of the distal tibia and fibula is partially vis ualized and has the appearance of old fractures. No acute fracture or dislocation of the foot is ap parent. IMPRESSION: Healed distal left leg fractures with severe arthritic changes of the ankle and hindfoot. No acute osseous abnormalities are demonstrated. POS: GAGANDEEP
--- NOTE | 2017-02-18 12:59 | OP ---
DATE OF PROCEDURE: 02/18/2017 SURGEON: Jemal Lopez M.D. CUSTODIAN MANAGER SURGEON: None. PROCEDURES PERFORMED: Endoscopic retrograde cholangiopancreatography with biliary sphincterotomy an d stone extraction. INDICATIONS: 1. Choledocholithiasis. 2. Biliary pancreatitis. MEDICATIONS: 1. Indomethacin 100 mg per rectum. 2. See anesthesia record. FINDINGS: After discussion of the risks, benefits and alternatives of the procedure, informed conse nt was obtained and witnessed. Pre-endoscopic cardiopulmonary examination was satisfactory. DESCRIPTION OF PROCEDURE: Timeout was performed before sedation was achieved. Sedation was achieve d with anesthesia assistance in the endoscopy unit. The patient was placed in the semi-prone positi on on the fluoroscopy table under general anesthesia. A Pentax adult side-viewing duodenoscope was used to intubate the esophagus. The endoscope was passed beyond the esophagus and stomach and into the second portion of the duodenum. The ampulla was brought into view with the endoscope in the alexandr rt position. The ampulla was quite small and finally identified by free flowing bile coming out of the orifice. The bile duct was selectively cannulated using a 0.035 guidewire and triple lumen dome tip sphincterotome. The guidewire was passed up into the right intrahepatic system. Cholangiogram was then performed. This demonstrated a single large filling defect within the mid common bile ro t. This was mobile as the cholangiogram was performed and consistent with a single bile duct stone. A biliary sphincterotomy was then performed. The sphincterotome was exchanged for a 12 mm extract ion balloon. Multiple passes were made of the common bile duct with the balloon fully inflated. In this fashion, the single large stone was extracted. Occlusion cholangiogram then demonstrated no f urther filling defects in the common bile duct. The final sweep was made of the bile duct with the balloon fully inflated to sweep out excess contrast. The working apparatus was then completely with drawn. The endoscope was then completely withdrawn suctioning out excess air and fluid. Postproced ure fluoroscopic images demonstrated no retroperitoneal or subdiaphragmatic free air. The patient t olerated the procedure well. There were no immediate postprocedure complications. IMPRESSION: Choledocholithiasis, status post successful biliary sphincterotomy and balloon extracti on of a single large common bile duct stone. RECOMMENDATIONS: 1. Continue supportive care for pancreatitis. 2. The diet may be advanced as tolerated this afternoon, if the patient is pain free.
[2017-02-18] MEDS: Zolpidem Tartrate 5 MG TAB PO PRN (20:51)
[2017-02-18] MEDS: Rosuvastatin 10 MG TAB PO SCH (20:51)
[2017-02-18] MEDS: Loratadine 10 MG TAB PO PRN (20:51)
[2017-02-19 05:19] LABS: #Lymphocytes 1.3 thou/uL (1.20-3.40); #Monocytes 0.5 thou/uL (0.11-0.59); #Neutrophils 7.3 thou/uL (1.40-6.50); %Basophils 0.1 % (0.0-1.0); %Eosinophils 0.1 % (0.0-10.0); %Lymphocytes 14.1 % (21.0-51.0); %Monocytes 5.6 % (0.0-10.0); Hematocrit 40.9 % (42.0-52.0); Mean Platelet Volume 9.8 fL (7.4-10.4); Red Blood Cell (RBC) Count 3.92 mill/uL (4.70-6.10); White Blood Cell (WBC) Count 9.1 thou/uL (4.8-10.8)
[2017-02-19 05:35] LABS: ALT (SGPT) 159 U/L (8-55); AST (SGOT) 33 U/L (5-34); Alkaline Phosphatase 187 U/L (40-150); Anion Gap 15 mmol/L (10-20); BUN (Urea Nitrogen) 17 mg/dL (8.4-25.7); Bilirubin, Total 0.6 mg/dL (0.2-1.2); Calc. Creatinine Clearance 58 mL/min (70-130); Carbon Dioxide 15 mmol/L (23-31); Chloride 110 mmol/L (98-107); Estimated GFR-MDRD 55; Globulin 3.6 g/dL (2.4-3.5); Protein, Total 6.7 g/dL (5.8-8.1)
[2017-02-19] MEDS: Mometasone/Formoterol 120 PUFF INHALER INH SCH ×2 (07:03→18:51)
[2017-02-19] MEDS: Multivit, Therapeutic 1 TAB PO SCH (08:59)
[2017-02-19] MEDS: Montelukast Sodium 10 mg Tablet PO SCH (08:59)
[2017-02-19] MEDS: Enoxaparin Sodium 40 MG/0.4 ML SYRINGE SC SCH (08:59)
[2017-02-19] MEDS: Famotidine/PF 20 mg/2ml Vial SLOW IVP SCH ×2 (08:59→20:05)
[2017-02-19] MEDS: Levothyroxine Sodium 50 MCG TAB PO SCH (08:59)
[2017-02-19] MEDS: Calcium Carbonate 600 MG TAB PO SCH (08:59)
[2017-02-19] MEDS: Tamsulosin HCl 0.4 MG CAP PO SCH (08:59)
--- NOTE | 2017-02-19 10:34 | PRG ---
DATE OF SERVICE: 02/19/2017 SUBJECTIVE: Mr. Donahue is feeling very well. No further abdominal pain or nausea. He is passing fl atus. He is tolerating his regular diet this morning without difficulty. OBJECTIVE: VITAL SIGNS: Temperature 97.8, blood pressure 133/72, pulse 48, and 92% oxygen saturation on room a ir. GENERAL: No acute distress, pacing about the room comfortably. HEART: Regular rate and rhythm. LUNGS: Clear to auscultation bilaterally. ABDOMEN: Bowel sounds present, soft, mildly distended, tympanitic, and nontender to palpation. EXTREMITIES: No peripheral edema. LABORATORY STUDIES: Sodium 136, potassium 4.2, BUN 17, creatinine 1.27, total bilirubin down to 0.6 , AST down to 33, ALT down to 159, alkaline phosphatase down to 187. ASSESSMENT AND PLAN: 1. Choledocholithiasis, now status post successful endoscopic retrograde cholangio-pancreatography with biliary sphincterotomy and stone extraction yesterday. 2. Biliary pancreatitis, clinically resolved. The patient's pancreatitis seems to resolved at this point. He is happy with the results. Since he is tolerating his diet, I think he would be okay fo r hospital discharge at least from a GI perspective later today. GI will sign off, but please call back with questions or concerns.
--- NOTE | 2017-02-19 12:04 | PDOC.PN ---
- Subjective Encounter Start Date: 02/19/17 Encounter Start Time: 09:20 Subjective: is eating breakfast, no abd pain -: is passing flatus no bm yet -: foot pain is better, is able to amb in room near his bed - Objective Resuscitation Status: Resuscitation Status FULL:Full Resuscitation MAR Reviewed: Yes Vital Signs & Weight: Vital Signs (12 hours) Temp Pulse Resp BP BP Pulse Ox 02/19/17 09:24 69 02/19/17 08:17 97.8 F 48 L 16 133/72 92 L 02/19/17 08:00 97.8 F 69 16 92 L 02/19/17 07:03 47 L 20 97 02/19/17 04:00 98.5 F 45 L 16 133/77 95 Weight Weight 192 lb 8 oz I&O: 02/18/17 02/19/17 02/20/17 07:59 06:59 06:59 Intake Total Output Total Balance Result Diagrams: 02/19/17 04:41 02/19/17 04:41 Phys Exam - Physical Examination HEENT: PERRLA, moist MMs Neck: no JVD, supple Respiratory: no wheezing, no rales Cardiovascular: RRR, no significant murmur Gastrointestinal: soft, non-tender, positive bowel sounds Musculoskeletal: pulses present, edema present Neurological: non-focal, moves all 4 limbs Psychiatric: A&O x 3 Dx/Plan (1) Choledocholithiasis Code(s): K80.50 - CALCULUS OF BILE DUCT W/O CHOLANGITIS OR CHOLECYST W/O OBST Status: Acute Comment: s/p ERCP with extraction of stone with sphincterotomy (2) Acute pancreatitis Code(s): K85.90 - ACUTE PANCREATITIS WITHOUT NECROSIS OR INFECTION, UNSP Status: Acute Qualifiers: Pancreatitis type: biliary (3) Alcohol abuse Code(s): F10.10 - ALCOHOL ABUSE, UNCOMPLICATED Status: Chronic (4) BPH (benign prostatic hyperplasia) Code(s): N40.0 - BENIGN PROSTATIC HYPERPLASIA WITHOUT LOWER URINRY TRACT SYMP Status: Chronic Qualifiers: Lower urinary tract symptom presence: unspecified whether lower urinary tract symptoms present Qualified Code(s): N40.0 - Benign prostatic hyperplasia without lower urinary tract symptoms (5) COPD (chronic obstructive pulmonary disease) Status: Chronic Qualifiers: COPD type: chronic bronchitis (6) Dyslipidemia Code(s): E78.5 - HYPERLIPIDEMIA, UNSPECIFIED Status: Chronic (7) GERD (gastroesophageal reflux disease) Code(s): K21.9 - GASTRO-ESOPHAGEAL REFLUX DISEASE WITHOUT ESOPHAGITIS Status: Chronic Qualifiers: Esophagitis presence: esophagitis presence not specified Qualified Code(s) : K21.9 - Gastro-esophageal reflux disease without esophagitis (8) Hypertension Code(s): I10 - ESSENTIAL (PRIMARY) HYPERTENSION Status: Chronic Qualifiers: Hypertension type: essential hypertension Qualified Code(s): I10 - Essential (primary) hypertension (9) Hypothyroidism Code(s): E03.9 - HYPOTHYROIDISM, UNSPECIFIED Status: Chronic Qualifiers: Hypothyroidism type: unspecified Qualified Code(s): E03.9 - Hypothyroidism , unspecified (10) Macrocytosis Code(s): D75.89 - OTHER SPECIFIED DISEASES OF BLOOD AND BLOOD-FORMING ORGANS Status: Chronic - Plan tolerating oral solid diet -: to amb in room -: dc plan early in am, has outpt f/u with dermatology at 10.30am -: lft's are trending down -: left foot no fracture over phalanges, edema is receding * . Review of Systems - Medications/Allergies Allergies/Adverse Reactions: Allergies Allergy/AdvReac Type Severity Reaction Status Date / Time Penicillins Allergy Hives Verified 05/30/13 13:45 BLACK PEPPER Allergy Uncoded 05/30/13 21:34 GARLIC Allergy Uncoded 05/30/13 21:34 Medications: Current Medications Acetaminophen (Tylenol) 650 mg PO Q4H PRN PRN Reason: Headache/Fever or Pain Hydrocodone Bitart/Acetaminophen ([place] 5/325) 1 tab PO Q4H PRN PRN Reason: Moderate Pain (4-6) Al Hydroxide/Mg Hydroxide (Maalox) 30 ml PO Q6H PRN PRN Reason: Heartburn or Indigestion Albuterol/Ipratropium (Duoneb) 3 ml NEB [id number] PRN PRN Reason: SOB &/or Wheezing Artificial Tears (Tears Naturale) 0 drop EA EYE PRN PRN PRN Reason: Dry Eyes Calcium Carbonate (Caltrate) 600 mg PO DAILY [facility] Last Admin: 02/19/17 08:59 Dose: 600 mg Enoxaparin Sodium (Lovenox) 40 mg SC 0900 [facility] Last Admin: 02/19/17 08:59 Dose: 40 mg Famotidine (Pepcid) 20 mg SLOW IVP Q12HR [facility] Last Admin: 02/19/17 08:59 Dose: 20 mg Guaifenesin (Robitussin Sf) 200 mg PO Q4H PRN PRN Reason: Cough Hydralazine HCl (Apresoline) 10 mg SLOW IVP Q4H PRN PRN Reason: Systolic BP > 180 Labetalol HCl (Normodyne) 20 mg SLOW IVP Q4H PRN PRN Reason: Systolic BP > 180 Levothyroxine Sodium (Synthroid) 50 mcg PO DAILY [facility] Last Admin: 02/19/17 08:59 Dose: 50 mcg Loperamide HCl (Imodium) 2 mg PO PRN PRN PRN Reason: Diarrhea/Loose Stools Loratadine (Claritin) 10 mg PO DAILYPRN PRN PRN Reason: Sinus Symptoms Last Admin: 02/18/17 20:51 Dose: 10 mg Magnesium Hydroxide (Milk Of Magnesium) 30 ml PO DAILYPRN PRN PRN Reason: Constipation Mineral Oil/White Petrolatum (Eucerin Cream) 0 gm TOP BIDPRN PRN PRN Reason: Dry Skin Mometasone Furoate/Formoterol Fumar (Dulera 200 Mcg/5 Mcg Inhaler) 2 puff INH BID-RT [facility] Last Admin: 02/19/17 07:03 Dose: 2 puff Montelukast Sodium (Singulair) 10 mg PO DAILY [facility] Last Admin: 02/19/17 08:59 Dose: 10 mg Morphine Sulfate (Morphine) 4 mg SLOW IVP Q4H PRN PRN Reason: Pain Multivitamins (Theragran) 1 tab PO DAILY [facility] Last Admin: 02/19/17 08:59 Dose: 1 tab Ondansetron HCl (Zofran Odt) 4 mg PO Q6H PRN PRN Reason: Nausea/Vomiting Ondansetron HCl (Zofran) 4 mg IVP Q6H PRN PRN Reason: Nausea/Vomiting Rosuvastatin Calcium (Crestor) 10 mg PO HS [facility] Last Admin: 02/18/17 20:51 Dose: 10 mg Senna (Senokot) 2 tab PO HSPRN PRN PRN Reason: Constipation Sodium Chloride ([place] Nasal [place] 0.65%) 0 ml EA NARE QIDPRN PRN PRN Reason: Nasal Congestion Sodium Chloride (Flush - Normal Saline) 10 ml IVF Q12HR [facility] Last Admin: 02/19/17 09:00 Dose: 10 ml Sodium Chloride (Flush - Normal Saline) 10 ml IVF PRN PRN PRN Reason: Saline Flush Tamsulosin HCl (Flomax) 0.4 mg PO DAILY [facility] Last Admin: 02/19/17 08:59 Dose: 0.4 mg Zolpidem Tartrate (Ambien) 5 mg PO HSPRN PRN PRN Reason: Insomnia Last Admin: 02/18/17 20:51 Dose: 5 mg
[2017-02-19] MEDS: Rosuvastatin 10 MG TAB PO SCH (20:05)
[2017-02-19 20:39] VITALS: TEMP 97.6
[2017-02-20 05:10] LABS: #Lymphocytes 1.6 thou/uL (1.20-3.40); #Neutrophils 4.8 thou/uL (1.40-6.50); %Basophils 0.2 % (0.0-1.0); %Eosinophils 0.6 % (0.0-10.0); Hematocrit 40.6 % (42.0-52.0); Mean Platelet Volume 9.8 fL (7.4-10.4); Red Blood Cell (RBC) Count 3.89 mill/uL (4.70-6.10); White Blood Cell (WBC) Count 7.5 thou/uL (4.8-10.8)
[2017-02-20 05:22] LABS: ALT (SGPT) 130 U/L (8-55); AST (SGOT) 33 U/L (5-34); Alkaline Phosphatase 160 U/L (40-150); Anion Gap 14 mmol/L (10-20); BUN (Urea Nitrogen) 24 mg/dL (8.4-25.7); Bilirubin, Total 0.4 mg/dL (0.2-1.2); Calc. Creatinine Clearance 60 mL/min (70-130); Calcium 8.8 mg/dL (7.8-10.44); Carbon Dioxide 18 mmol/L (23-31); Chloride 111 mmol/L (98-107); Estimated GFR-MDRD 56; Globulin 3.4 g/dL (2.4-3.5); Protein, Total 6.5 g/dL (5.8-8.1)
[2017-02-20 07:18] VITALS: BP 160/88
[2017-02-20] MEDS: Levothyroxine Sodium 50 MCG TAB PO SCH (07:51)
[2017-02-20] MEDS: Multivit, Therapeutic 1 TAB PO SCH (07:52)
[2017-02-20] MEDS: Montelukast Sodium 10 mg Tablet PO SCH (07:52)
[2017-02-20] MEDS: Enoxaparin Sodium 40 MG/0.4 ML SYRINGE SC SCH (07:52)
[2017-02-20] MEDS: Famotidine/PF 20 mg/2ml Vial SLOW IVP SCH (07:52)
[2017-02-20] MEDS: Calcium Carbonate 600 MG TAB PO SCH (07:52)
[2017-02-20] MEDS: Tamsulosin HCl 0.4 MG CAP PO SCH (07:52)
[2017-02-20] MEDS: Mometasone/Formoterol 120 PUFF INHALER INH SCH (08:25)
--- NOTE | 2017-02-20 12:24 | PDOC.PN ---
- Subjective Encounter Start Date: 02/20/17 Encounter Start Time: 06:45 Subjective: no abd pain, is tolerating oral solid diet -: had bm this am - Objective Resuscitation Status: Resuscitation Status FULL:Full Resuscitation MAR Reviewed: Yes Vital Signs & Weight: Vital Signs (12 hours) Temp Pulse Resp BP Pulse Ox 02/20/17 07:18 97.6 F 55 L 16 160/88 H 98 Weight Weight 192 lb 8 oz I&O: 02/19/17 02/20/17 02/21/17 06:59 06:59 06:59 Intake Total 300 Output Total Balance 300 Result Diagrams: 02/20/17 04:25 02/20/17 04:25 Phys Exam - Physical Examination HEENT: PERRLA, moist MMs Neck: no JVD, supple Respiratory: no wheezing, no rales Cardiovascular: RRR, no significant murmur Gastrointestinal: soft, non-tender, no distention, positive bowel sounds Musculoskeletal: no edema, pulses present Neurological: non-focal, moves all 4 limbs Psychiatric: A&O x 3 Dx/Plan (1) Choledocholithiasis Code(s): K80.50 - CALCULUS OF BILE DUCT W/O CHOLANGITIS OR CHOLECYST W/O OBST Status: Acute Comment: s/p ERCP with extraction of stone with sphincterotomy (2) Acute pancreatitis Code(s): K85.90 - ACUTE PANCREATITIS WITHOUT NECROSIS OR INFECTION, UNSP Status: Acute Qualifiers: Pancreatitis type: biliary (3) Alcohol abuse Code(s): F10.10 - ALCOHOL ABUSE, UNCOMPLICATED Status: Chronic (4) BPH (benign prostatic hyperplasia) Code(s): N40.0 - BENIGN PROSTATIC HYPERPLASIA WITHOUT LOWER URINRY TRACT SYMP Status: Chronic Qualifiers: Lower urinary tract symptom presence: unspecified whether lower urinary tract symptoms present Qualified Code(s): N40.0 - Benign prostatic hyperplasia without lower urinary tract symptoms (5) COPD (chronic obstructive pulmonary disease) Status: Chronic Qualifiers: COPD type: chronic bronchitis (6) Dyslipidemia Code(s): E78.5 - HYPERLIPIDEMIA, UNSPECIFIED Status: Chronic (7) GERD (gastroesophageal reflux disease) Code(s): K21.9 - GASTRO-ESOPHAGEAL REFLUX DISEASE WITHOUT ESOPHAGITIS Status: Chronic Qualifiers: Esophagitis presence: esophagitis presence not specified Qualified Code(s) : K21.9 - Gastro-esophageal reflux disease without esophagitis (8) Hypertension Code(s): I10 - ESSENTIAL (PRIMARY) HYPERTENSION Status: Chronic Qualifiers: Hypertension type: essential hypertension Qualified Code(s): I10 - Essential (primary) hypertension (9) Hypothyroidism Code(s): E03.9 - HYPOTHYROIDISM, UNSPECIFIED Status: Chronic Qualifiers: Hypothyroidism type: unspecified Qualified Code(s): E03.9 - Hypothyroidism , unspecified (10) Macrocytosis Code(s): D75.89 - OTHER SPECIFIED DISEASES OF BLOOD AND BLOOD-FORMING ORGANS Status: Chronic - Plan hemostable -: may dc home -: no alc use on discharge * .
--- NOTE | 2017-02-20 22:20 | DIS ---
DATE OF ADMISSION: 02/16/2017 DATE OF DISCHARGE: 02/20/2017 DISCHARGE DISPOSITION: To home. PRIMARY DISCHARGE DIAGNOSIS: Choledocholithiasis with acute pancreatitis status post endoscopic retrograde cholangiopancreatography with extraction of stone and sphincterotomy. SECONDARY DISCHARGE DIAGNOSES: Chronic obstructive pulmonary disease, benign prostatic hypertrophy, history of alcohol abuse, dyslipidemia, hypertension, hypothyroidism, macrocytosis, and gastroesophageal reflux disease. PROCEDURES DONE DURING HOSPITALIZATION: The patient has had MRCP done on 2016, which showed findings suspicious for choledocholithiasis with a suspected 5 mm stone in the distal common bile duct. He had large hiatal hernia seen. Right upper quadrant ultrasound done showed findings of prior cholecystectomy. There were no other acute abnormalities seen. He has had ERCP done on [address] Jemal Lopez with biliary sphincterotomy and stone extraction. Urine culture, no growth. H and H 13 and 42, platelet count of 140, MCV is 105, white count of 7.5. Lipase on the day of admission was 978 with numbers dropping down to 193 on the 4th. Initial total bilirubin was 2.6 with discharge numbers of 0.4, initial AST 210 with discharge numbers of 33. Initial ALT 429 with discharge numbers of 130. Alkaline phosphatase was 311 on admission with discharge numbers of 160. CRP was 10.8. Initial BUN and creatinine was 27 and 1.6 with discharge numbers of 24 and 1.2. Acute hepatitis panel was negative. INPATIENT CONSULTS: Dr. Palencia/Dr. Jemal Lopez for Gastroenterology. DISCHARGE PLAN: Patient to follow up with Dr. Palencia in 4 weeks. He also needs to follow up with his primary care physician in 1 week. DISCHARGE MEDICATIONS: Vitamin B12 50 mcg p.o. daily, Advair Diskus 250/50 mcg inhaler twice daily, levothyroxine 50 mcg p.o. daily, losartan with hydrochlorothiazide 100/25 mg p.o. daily, Singulair 10 mg p.o. daily, multivitamin 1 tab once daily, omeprazole 20 mg twice daily, Crestor 10 mg p.o. at bedtime, Flomax 0.4 mg p.o. daily, and Benadryl 50 mg p.o. at bedtime. ALLERGIES: PENICILLIN, BLACK PEPPER and GARLIC. BRIEF COURSE DURING HOSPITALIZATION: The patient initially got admitted on the from Dr. Palencia' office for findings of acute pancreatitis. He had 3 weeks of off and on epigastric abdominal pain with chest pain. His LFTs were elevated and lipase as well. He was diagnosed with acute pancreatitis. The patient was aggressively hydrated. He has had consultation with Dr. Palencia/Dr. Jemal Lopez for Gastroenterology. He has had MRCP done, which showed distal common bile duct stone. He successfully had ERCP with extraction of the CBD stone with sphincterotomy done. His LFTs are slowly trending down. Patient's abdominal pain has completely resolved. He is tolerating oral solid diet and is ambulating in the room prior to discharge. He has a followup appointment with his drag down this morning and will be shortly discharged home. Please see a face to face [facility] for the day of discharge. TINY
--- NOTE | 2017-02-21 16:28 | RAD ---
ERCP TWO VIEWS: Comparison: MR abdomen, 03-16-17. FINDINGS: Submitted images demonstrate a focal filling defect within the central common bile duct with a wire seen projecting into the intrahepatic biliary ducts. Surgical clips within the right upper quadrant consistent with the patient's history of cholecystectomy. Subsequent images demonstrate distal displ acement of the focal filling defect within the lower common bile duct. IMPRESSION: Central filling defect within the common bile duct likely reflects a catheter balloon rather than CB D stone. POS: GAGANDEEP
== END 2017-02-20 09:11 | disposition home or self-care (01) | DRG 439 ==
LOC: T4-A 12:20
PROVIDERS: ADMIT Internal Medicine Gastroenterology; ATTEND Internal Medicine
PROC: 0FC98ZZ Extirpation of Matter from Common Bile Duct, Via Natural or Artificial Opening Endoscopic (ICD-10-PCS; principal; 2017-02-18)
PROC: BF10YZZ Fluoroscopy of Bile Ducts using Other Contrast (ICD-10-PCS; 2017-02-18)
DX: K85.10 Biliary acute pancreatitis without necrosis or infection (principal); N39.0 Urinary tract infection, site not specified; J44.9 Chronic obstructive pulmonary disease, unspecified; R13.10 Dysphagia, unspecified; K80.50 Calculus of bile duct without cholangitis or cholecystitis without obstruction; L40.50 Arthropathic psoriasis, unspecified; N18.3 Chronic kidney disease, stage 3 (moderate); Z90.49 Acquired absence of other specified parts of digestive tract; Z85.828 Personal history of other malignant neoplasm of skin; Z72.0 Tobacco use; I12.9 Hypertensive chronic kidney disease with stage 1 through stage 4 chronic kidney disease, or unspecified chronic kidney disease; Z88.0 Allergy status to penicillin; Z91.018 Allergy to other foods; F10.20 Alcohol dependence, uncomplicated; D75.89 Other specified diseases of blood and blood-forming organs; E03.9 Hypothyroidism, unspecified; E78.5 Hyperlipidemia, unspecified; N40.0 Benign prostatic hyperplasia without lower urinary tract symptoms; K21.9 Gastro-esophageal reflux disease without esophagitis; K44.9 Diaphragmatic hernia without obstruction or gangrene; Z79.52 Long term (current) use of systemic steroids
CPT/HCPCS: 36415; 74181; 74330; 76705; 80053; 80061; 80074; 81001; 82150; 82607; 82746; 83516; 83630; 83690; 83735; 84100; 84443; 85025; 86140; 87015; 87045; 87046; 87086; 87177; 87324; 87449; 87899; A4216; J1100; J1610; J1650; J1956; J2001; J2704; J3010; J7042; Q9961; S0028

== ENCOUNTER 2017-04-05 09:32 | Outpatient (CLI) | payer MEDICARE, OTHER ==
[~2017-04-05 09:32] MED LIST: Iopamidol 370 76% 100 ML VIAL ONE
--- NOTE | 2017-04-05 13:17 | CT ---
CT OF THE ABDOMEN AND PELVIS WITH IV CONTRAST: INDICATION: Evaluate abdominal aortic aneurysm. TECHNIQUE: Multiple CT images were obtained of the abdomen and pelvis with IV contrast. 70 cc of Isovue 370 was utilized. COMPARISON: Comparisons are made an abdominal aortic ultrasound from [facility] dated July 27. FINDINGS: The aorta is tortuous due to mild thoracolumbar scoliosis. On the ultrasound, it gave the appearance of a fusiform aneurysm, but a lot of that is related to the tortuosity of the aorta. The infrarenal abdominal aorta upon similar measurement measures approximately 4.2 x 3.5 cm, which is relatively stable to the prior exam. The aneurysmal dilatation is approximately 5.5 cm below the le pavel of the lowermost left renal artery. The distal thoracic aorta measures up to 2.8 cm. The suprarenal abdominal aorta at the level of the celiac artery measures 2.7 cm. The abdominal aorta at the level of the renal arteries measures 2.4 cm. The abdominal aorta just prior to the bifurcation measures 2.4 cm. The right common iliac artery measured 1.4 cm. The left common iliac artery measured 1.6 cm. There are scattered vascular calcifications noted involving the abdominopelvic vasculature. There is a moderate-sized hiatal hernia. There is mild bibasilar atelectasis. The gallbladder is surgically absent. The spleen is within normal limits. The pancreas and adrenal glands appear within normal limits. There is scattered diverticula involving the colon without evidence of active diverticulitis. The sm all bowel is of normal caliber. Prostate is mildly enlarged measuring 5.5 cm. There is scattered de generative and osteoarthritic change. There is a small hemangioma within the right aspect of L3 with in the left aspect of T11. IMPRESSION: 1. Stable infrarenal abdominal aortic aneurysm measuring up to 4.2 cm. 2. 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 3. Moderate-sized hiatal hernia. 4. Colonic diverticulosis. 5. Cholecystectomy. 6. Prostate enlargement. POS: [facility]
== END 2017-04-05 09:33 | disposition home or self-care (01) ==
LOC: SCSCT 09:32
PROVIDERS: ATTEND Internal Medicine Cardiovascular Disease
DX: I71.4 Abdominal aortic aneurysm, without rupture (principal); I72.3 Aneurysm of iliac artery; K44.9 Diaphragmatic hernia without obstruction or gangrene; K57.30 Diverticulosis of large intestine without perforation or abscess without bleeding; N40.1 Benign prostatic hyperplasia with lower urinary tract symptoms; Z90.49 Acquired absence of other specified parts of digestive tract
CPT/HCPCS: 74177

== ENCOUNTER 2018-03-02 09:44 | Outpatient (CLI) | payer MEDICARE, OTHER ==
--- NOTE | 2018-03-02 12:02 | BD ---
DEXA BONE DENSITY STUDY: HISTORY: Osteoporosis screening. COMPARISON: None. FINDINGS: LUMBAR SPINE BMD (g/cm2) T-SCORE Z-SCORE L1 1.006 -0.6 0.5 L2 1.084 -0.1 1.1 L3 1.360 2.3 3.5 L4 1.432 3.1 4.3 TOTAL 1.222 1.2 2.4 WHO CLASSIFICATION: Normal. BMD (g/cm2) T-SCORE Z-SCORE FEMORAL NECK: 0.908 -0.2 1.4 TOTAL: 1.084 0.3 1.4 WHO CLASSIFICATION: Normal. IMPRESSION: Normal bone mineral density. FRAX score is not reported, as all T-score are at or above -1.0. POS: [facility]
== END 2018-03-02 09:45 | disposition home or self-care (01) ==
LOC: BICMAMMO 09:44
PROVIDERS: ATTEND Internal Medicine Rheumatology
DX: M81.0 Age-related osteoporosis without current pathological fracture (principal)
CPT/HCPCS: 77080

== ENCOUNTER 2018-04-03 09:53 | Outpatient (CLI) | payer MEDICARE, OTHER ==
--- NOTE | 2018-04-03 13:03 | CT ---
ABDOMEN AND PELVIC CT SCAN WITH IV CONTRAST: History: 82-year-old male with history of I71.4, AAA. Follow up abdominal aortic aneurysm. Comparison: 04-05-17 FINDINGS: Mild increased linear and interstitial markings in the lower lung zones and minimal pleural thickenin g, evidence for chronic change. Stable moderate sized hiatal hernia. Status post cholecystectomy. Kaitlin er, pancreas, spleen, adrenal glands are unremarkable. Stable multiple left renal parapelvic cyst. No acute obstruction or renal calculus. There is extensive tortuosity and some aneurysmal dilatation of the abdominal aorta. The most marked focal dilatation is at the region of the tortuosity below th e level of the renal arteries that measure approximately 3.7 x 4.1 cm, stable. There is some stable g eneralized dilatation of the common iliac arteries. There is scattered colonic diverticulosis without acute diverticulitis. Fat containing right inguinal hernia is stable. Very small left fat containing inguinal hernia. IMPRESSION: Stable aortic tortuosity and up to 4.1 cm diameter infrarenal abdominal aortic aneurysm. Moderate siz ed hiatal hernia. Numerous left renal parapelvic cysts. Bilateral fat containing inguinal hernias. Co lonic diverticulosis without acute diverticulitis. No significant new process. POS: [facility]
== END 2018-04-03 09:54 | disposition home or self-care (01) ==
LOC: BICCT 09:53
PROVIDERS: ATTEND Internal Medicine Cardiovascular Disease
DX: I71.4 Abdominal aortic aneurysm, without rupture (principal); K44.9 Diaphragmatic hernia without obstruction or gangrene; N28.1 Cyst of kidney, acquired; K57.30 Diverticulosis of large intestine without perforation or abscess without bleeding; K40.20 Bilateral inguinal hernia, without obstruction or gangrene, not specified as recurrent
CPT/HCPCS: 74177; 82565